=== PATIENT | male | born 1990 | race African-American/Black ===

== ENCOUNTER 2021-12-29 01:36 | Emergency (ER) | payer SELFPAY ==
[2021-12-29 03:20] LABS: Bilirubin Negative (Negative); Blood, Urine Negative (Negative); Clarity Clear (Clear); Glucose, Urine (Dipstick) Normal (Negative); Ketone, Urine Trace mg/dL (Negative); Leukocyte Negative Leu/uL (Negative); Nitrite Negative (Negative); Protein, Urine (Dipstick) 20 mg/dL (Neg-Trace); Specific Gravity, Urine 1.035 (1.002-1.036)
[2021-12-29] MEDS ORDERED: metroNIDAZOLE 250 MG TAB ONE ×2 (03:48→03:51)
[2021-12-29 11:59] LABS: Chlam.trachomatis by PCR,Urine Not Detected (NotDetected)
== END 2021-12-29 04:07 | disposition home or self-care (01) ==
LOC: ERS 01:36
DX: Z20.2 Contact with and (suspected) exposure to infections with a predominantly sexual mode of transmission (principal)
CPT/HCPCS: 81003; 87491; 87591; 99283